=== PATIENT | female | born 1930 | race African-American/Black ===

== ENCOUNTER → 2016-11-22 | Outpatient (CLI) | payer MEDICARE, OTHER ==
[~2016-11-22] MED LIST: ACTONEL PO; ALDACTONE25 MG PO; ALENDRONATE SOD35 MG PO; AMLODIPINE BESY10 MG PO; AMLODIPINE BESYL5 MG PO; ASPIRIN EC81 M1 PO; ASPIRIN PO; ASPIRIN81 MG PO; B COMPLEX SUBLI59 ML SL; BENZONATATE PO; BETAPACE PO; BETAPACE160 MG PO; COUMADIN PO; COUMADIN2.5 MG PO; COUMADIN5 MG PO; COZAAR100 MG PO; CRESTOR PO; FEOSOL PO; FERROUS SULFATE PO; FOLIC ACID PO; FOLIC ACID800 MCG PO; FOSAMAX35 MG PO; HCTZ PO; HYDROCHLOROTH12.5 MG PO; HYZAAR 100-25 T1 TAB PO; IBUPROFEN200 M1 PO; IMDUR-ER30 M1 PO; ISOSORBIDE MONO10 MG PO; KCL PO; LEVOTHYROXINE25 MC1 PO; LEVOTHYROXINE25 MCG PO; LOMOTIL TABLET1 TAB; LOPRESSOR PO; MEGACE ORA40 MG/ML S PO; MEGACE ORA400 MG/10; MEGACE ORA400 MG/10 PO; MEGESTROL ACETA40 MG PO; MULTI VITAMIN1 EACH PO; MULTI-VITAMIN1 TAB PO; MULTIVITAMINS1 EAC3 PO; NITROFURANTOIN50 M1 PO; NITROGLYGERIN0.4 MG SL; OMEPRAZOLE40 M1 PO; OMEPRAZOLE40 MG; PANTOPRAZOLE SO40 MG PO; PROAIR HFA8.5 GM INH; PROTONIX PO; REFRESH CLASSI1 EACH OU; REFRESH EYE DRO50 E1 OU; SIMVASTATIN40 MG PO; SOTALOL160 MG PO; SPIRIVA18 MCG INH; SULAR PO; SYMBICORT INH; SYNTHROID PO; TRAMADOL HCL50 M1 PO; VITAMIN B-12250 MCG PO; WARFARIN SODIU2.5 MG PO; ZOCOR PO; ZYRTEC PO
[2016-11-22 13:00] LABS: URINE APPEARANCE CLEAR; URINE BILIRUBIN NEG (NEG); URINE BLOOD NEG (NEG); URINE COLOR YELLOW; URINE GLUCOSE NEG (NEG); URINE KETONE NEG (NEG); URINE LEUKOCYTE ESTERASE 1+ (NEG); URINE NITRATE NEG (NEG); URINE PH 5.5 (5-8); URINE PROTEIN NEG (NEG); URINE SPECIFIC GRAVITY 1.015 (1.003-1.035)
[2016-11-22 13:02] LABS: URBCS1 AUWI 0-2 /[HPF] (0-2); URINE BACTERIA AUWI NEG (NEGATIVE); URINE SQUAMOUS EPITHELIAL CELL NONE SEEN /[HPF]; UWBCS1 AUWI 0-2 (0-5)
[2016-11-22 13:14] LABS: CULTURE INDICATED? NO
[2016-11-22 13:15] LABS: URINE MUCUS PRESENT; URINE SOURCE CLEAN CATCH
[2016-11-22 13:20] LABS: URINE CRYSTALS CALCIUM OXALATE /[HPF]
== END | disposition home or self-care (01) ==
LOC: CLAB 12:08
PROVIDERS: Nurse Practitioner
DX: R10.2 Pelvic and perineal pain (principal)
CPT/HCPCS: 36415; 81003

== ENCOUNTER 2017-03-25 15:04 | Inpatient (IN) | payer MEDICARE, OTHER ==
[~2017-03-25] VITALS: Ht 162.6 cm; Wt 51.1 kg
--- NOTE | ~2017-03-25 | DS ---
Unit #: [id number] #: [id number] Patient: KATHLEEN BUCHANAN [id number] [address] [place], [place] [address] [id number] I MR#: [id number] NAME: KATHLEEN BUCHANAN ROOM: [facility] Age: 87 Sex: F Admission Date: 03/25/2017 : 1930 Discharge Date: 03/26/2017 Attending Physician: Haile Hughes M.D. DISCHARGE SUMMARY REVISED REPORT See Addendum ADMISSION DIAGNOSIS Atrial fibrillation. DISCHARGE DIAGNOSES 1. Atrial fibrillation, rapid ventricular response, spontaneous cardioversion, associated with shortness of breath and lightheadedness. 2. Sick sinus syndrome with permanent pacemaker placement. 3. Normal ejection fraction on echo with moderate aortic stenosis, peak gradient approximately 25 mmHg. 4. Severe orthopnea, sleeps sitting, likely obstructive sleep apnea. 5. Coronary artery disease, status post stenting to RCA in 2000. 6. Hypothyroidism. 7. Dyslipidemia. 8. History of syncope. HOSPITAL COURSE Patient was admitted and myocardial infarction was ruled out. Pacemaker was interrogated. This showed multiple instances of atrial events similar to yesterday, 11. These are being treated by Dr. Greenwood with Coumadin. Yesterday's was the longest for this patient. Most had been between one hour and two hours. Yesterday's was 10 hours in duration. Labs showed white blood count 7.5, hemoglobin 12.7, INR 2.3, TSH 3.09. Total cholesterol was 249, triglycerides 157, HDL 52. Hemoglobin A1c not performed. Creatinine was 0.8, fasting glucose 126, potassium 3.9. Hypokalemia was noted upon admission to 2.9, but this was replaced. The patient was started on Spironolactone. FOLLOWUP With Dr. Greenwood in four to six weeks. DISCHARGE MEDICATIONS 1. Albuterol. 2. Symbicort. 3. Spiriva. 4. Warfarin 2.5 mg daily. 5. Megestrol 400 mg b.i.d. 6. Amlodipine 10 mg daily (5 mg tablets). 7. Sotalol 160 mg b.i.d. Unit #: [id number] #: [id number] Patient: LEVERIDGE,KATHLEEN P 8. Eyedrops. 9. Multivitamins. 10. Aspirin 81 mg daily. 11. Spironolactone 12.5 mg daily, new medication. 12. Protonix 40 mg daily. 13. Levothyroxine 25 mcg daily. 14. Imdur 30 mg daily. Dictated by... Alexandra Randhawa/radha TD: 03/28/2017 17:09 JOB #: [id number] CC: Maxwell Greenwood M.D. ADDENDUM DISCHARGE DIAGNOSES (CONTINUED) 9. Probable obstructive sleep apnea. RECOMMENDATIONS Patient will be seen by Dr. Velasquez before discharge to set up for an outpatient sleep study at [facility]. DISCHARGE MEDICATIONS (CONTINUED) Spironolactone upon discharge was given at 25 mg daily. Dictated by... Alexandra Randhawa TD: 03/28/2017 17:33 JOB #: [id number] CC: Maxwell Greenwood M.D. Sovera/invision Please Delete DISCHARGE SUMMARY Page 1 of 1 X Haile Hughes MD X DISCHARGE SUMMARY
--- NOTE | ~2017-03-25 | DS ---
Unit #: [id number] #: [id number] Patient: KATHLEEN BUCHANAN [id number] [address] [address] [id number] I MR#: [id number] NAME: KATHLEEN BUCHANAN. ROOM: 560 Age: 87 Sex: F Admission Date: 03/25/2017 : 1930 Discharge Date: 03/26/2017 Attending Physician: Haile Hughes M.D. DISCHARGE SUMMARY ADMISSION DIAGNOSIS Atrial fibrillation. DISCHARGE DIAGNOSES 1. Atrial fibrillation, rapid ventricular response, spontaneous cardioversion, associated with shortness of breath and lightheadedness. 2. Sick sinus syndrome with permanent pacemaker placement. 3. Normal ejection fraction on echo with moderate aortic stenosis, peak gradient approximately 25 mmHg. 4. Severe orthopnea, sleeps sitting, likely obstructive sleep apnea. 5. Coronary artery disease, status post stenting to RCA in 2000. 6. Hypothyroidism. 7. Dyslipidemia. 8. History of syncope. HOSPITAL COURSE Patient was admitted and myocardial infarction was ruled out. Pacemaker was interrogated. This showed multiple instances of atrial events similar to yesterday, 11. These are being treated by Dr. Greenwood with Coumadin. Yesterday's was the longest for this patient. Most had been between one hour and two hours. Yesterday's was 10 hours in duration. Labs showed white blood count 7.5, hemoglobin 12.7, INR 2.3, TSH 3.09. Total cholesterol was 249, triglycerides 157, HDL 52. Hemoglobin A1c not performed. Creatinine was 0.8, fasting glucose 126, potassium 3.9. Hypokalemia was noted upon admission to 2.9, but this was replaced. The patient was started on Spironolactone. FOLLOWUP With Dr. Greenwood in four to six weeks. DISCHARGE MEDICATIONS 1. Albuterol. 2. Symbicort. 3. Spiriva. 4. Warfarin 2.5 mg daily. 5. Megestrol 400 mg b.i.d. 6. Amlodipine 10 mg daily (5 mg tablets). 7. Sotalol 160 mg b.i.d. 8. Eyedrops. 9. Multivitamins. 10. Aspirin 81 mg daily. Unit #: [id number] #: [id number] Patient: KATHLEEN BUCHANAN 11. Spironolactone 12.5 mg daily, new medication. 12. Protonix 40 mg daily. 13. Levothyroxine 25 mcg daily. 14. Imdur 30 mg daily. 1. Dictated by... Alexandra Randhawa/radha TD: 03/28/2017 17:09 JOB #: [id number] CC: Maxwell Greenwood M.D. DISCHARGE SUMMARY Page 1 of 1 X Haile Hughes MD X DISCHARGE SUMMARY
--- NOTE | ~2017-03-25 | EKG ---
PATIENT: KATHLEEN BUCHANAN UNIT #: [id number] Ventricular Rate: 137 BPM Atrial Rate: 136 BPM QRS Duration: 126 ms Q-T Interval: 364 ms QTC Calculation(Bezet): 549 ms Calculated R [place]: -72 degrees Calculated T [place]: 138 degrees Diagnosis Line: Atrial fibrillation with rapid ventricular Diagnosis Line: response Diagnosis Line: Left axis deviation Diagnosis Line: Non-specific intra-ventricular conduction block Diagnosis Line: Septal infarct , age undetermined Diagnosis Line: T wave abnormality, consider lateral ischemia Diagnosis Line: Abnormal ECG Diagnosis Line: When compared with ECG of 19-AUG-2015 08:15, Diagnosis Line: Atrial fibrillation has replaced Electronic Diagnosis Line: ventricular pacemaker Diagnosis Line: Vent. rate has increased BY 46 BPM Diagnosis Line: Confirmed by MARY LOU MENSAH MD ([id number]) on 03/27/2017 Diagnosis Line: 1:59:21 PM INTERPRETING MD: RODRICK HALEY
--- NOTE | ~2017-03-25 | EKG ---
PATIENT: KATHLEEN BUCHANAN UNIT #: [id number] Ventricular Rate: 61 BPM Atrial Rate: 61 BPM P-R Interval: 156 ms QRS Duration: 128 ms Q-T Interval: 480 ms QTC Calculation(Bezet): 483 ms P [place]: 90 degrees Calculated R [place]: -58 degrees Calculated T [place]: 123 degrees Diagnosis Line: Electronic atrial pacemaker Diagnosis Line: Left axis deviation Diagnosis Line: Left bundle branch block with repolarization Diagnosis Line: abnormality Diagnosis Line: Abnormal ECG Diagnosis Line: When compared with ECG of 25-MAR-2017 15:21, Diagnosis Line: (unconfirmed) Diagnosis Line: Electronic atrial pacemaker has replaced Atrial Diagnosis Line: fibrillation Diagnosis Line: Vent. rate has decreased BY 76 BPM Diagnosis Line: T wave amplitude has decreased in Inferior leads Diagnosis Line: T wave amplitude has decreased in Anterior leads Diagnosis Line: Confirmed by MARY LOU MENSAH MD ([id number]) on 03/27/2017 Diagnosis Line: 2:01:55 PM INTERPRETING MD: RODRICK HALEY
--- NOTE | ~2017-03-25 | CR72 ---
[facility] A Service of [facility] & [facility] RADIOLOGY TEXT RESULTS PATIENT: KATHLEEN BUCHANAN LOCATION: C5B 560-01 : [birth year] UNIT #: [id number] AGE: [address]: Haile Hughes MD SEX: F ORDER DR: [id number] [facility] [address] [facility]. [place], [place] [address] [id number] I MR#: [id number] Acc #: [id number] NAME: KATHLEEN BUCHANAN. : 1930 SEX: F STUDY DATE/TIME: 03/25/2017 15:49 UNIT: [facility] ROOM: [facility] STUDY DESCRIPTION: CR Chest Single View Portable Attending Physician: Haile Hughes M.D. Ordering Physician: Adams Rodriguez M.D. Primary Care Physician: Primary Care Physician No MEDICAL IMAGING REPORT This report is preliminary unless electronic signature is present EXAM AP view of the chest COMPARISON August 19, 2015 June 10, 2014 and June 01, 2014. INDICATION 87-year-old female with dyspnea, tachycardia and diaphoresis for 3 hours today. FINDINGS Dual lead left chest pacemaker device appears stable. There is stable calcification of the aortic arch. Cardiomediastinal silhouette is within normal limits. There is no evidence of pleural effusion or acute airspace disease. There is lung hyperexpansion suggesting emphysema. Nipple shadow is seen over the right lung base. Multiple skin fold artifacts are seen over the right chest. No convincing evidence of pneumothorax. Lung hyperexpansion suggestive of COPD. There is minimal calcification near the insertion of the rotator cuff on the left humeral head as well as the right humeral head in the same location likely representing calcific tendinopathy. IMPRESSION Favored represent skin fold artifact over the right chest there are multiple lines which appear to parallel the chest wall. It appears that there are pulmonary markings peripheral to these lines favoring skin fold artifacts. Given the patient's acute onset of tachycardia and dyspnea however, further evaluation with left lateral decubitus view is recommended to exclude the possibility pneumothorax which is thought much less likely. Lungs are otherwise clear. There is no evidence of pneumonia. Findings are suggestive of COPD. Dictated by... [facility] A Service of [facility] & [facility] RADIOLOGY TEXT RESULTS PATIENT: KATHLEEN BUCHANAN LOCATION: [facility] 560-01 : [birth year] UNIT #: [id number] AGE: [address]: Haile Hughes MD SEX: F ORDER DR: Maxwell Wilkins M.D. THIS IS AN ELECTRONICALLY VERIFIED REPORT Maxwell Wilkins M.D. at 04/02/2017 10:37 AM BRIANA/kobe TD: 03/26/2017 05:26 JOB #: [id number] MEDICAL IMAGING REPORT Page 1 of 1 COPY
--- NOTE | ~2017-03-25 | CO ---
Unit #: [id number] #: [id number] Patient: KATHLEEN BUCHANAN [id number] [facility] [address]. [place], [place] [address] [id number] I MR#: [id number] NAME: KATHLEEN BUCHANAN ROOM: 560 Age: 87 Sex: F Admission Date: 03/25/2017 : 1930 Attending Physician: Haile Hughes M.D. Primary Care Physician: Primary Care Physician No CONSULTATION REPORT CONSULTATION REQUESTING PHYSICIAN Dr. Mccann. REASON FOR CONSULTATION REQUEST Atrial fibrillation. HISTORY OF PRESENT ILLNESS Ms. Levine is a pleasant 87-year-old female, seen in room T5 at [facility] Emergency Room. She is a patient of my colleague, Dr. Greenwood, and follows with him because of coronary artery disease and a history of atrial fibrillation. She has known paroxysmal atrial fibrillation, has been seen here at [facility] several times in the past, and has undergone stenting of the RCA in 2000, with open arteries in 2001 on cardiac catheterization. Recently she noticed tachycardia, shortness of breath, and lightheadedness. She feels the tachycardias and palpitations. She has had orthopnea, which has been severe, at least since the end of the year. She states that she absolutely must sleep sitting up. She has not had any syncope recently, but has been worked up for syncope in the past. She has not had any edema recently, or chest pain with exertion. Upon presentation to [facility] Emergency Room, her ECG showed left axis deviation, intraventricular conduction delay, atrial fibrillation with rates 137. She was started on diltiazem bolus and drip, and we are going to add digoxin. With diltiazem, heart rate was brought down to approximately 120. Fasting glucose today was 110, creatinine 1.0, potassium 2.9, magnesium 2.1. Troponin still to be measured. TSH previously was 2.2. Point of care troponin was normal. White blood count 7.5, hemoglobin 12.7, platelet count 147,000. PAST MEDICAL HISTORY 1. Atrial fibrillation paroxysmal, on anticoagulation. INR was normal. 2. Severe orthopnea at least since the beginning of the year. 3. Ejection fraction 55% in 2008. 4. Coronary artery disease, stenting of RCA in 2000. 5. Hypothyroidism. 6. Sick sinus syndrome, permanent pacemaker placement with generator change in 10/2016, recheck 01/2017. 7. Dyslipidemia. 8. History of syncope. Unit #: [id number] #: [id number] Patient: KATHLEEN BUCHANAN FAMILY HISTORY Not pertinent. SOCIAL HISTORY Daughters are here with her. Denies alcohol or tobacco use. MEDICATIONS Vitamin B12, megestrol, B complex, Spiriva, Refresh eye drops, ProAir, isosorbide, pantoprazole, tramadol, nitrofurantoin, amlodipine, folic acid, sotalol, Coumadin, aspirin, levothyroxine, Symbicort, Megace. ALLERGIES Penicillin, IV dye, acetaminophen. IV dye causes severe hives. Sulfa causes upset stomach. REVIEW OF SYSTEMS As per history of present illness. Otherwise, as stated below. GENERAL: No recent fever or chills. No recent weight change. ENDOCRINE: Negative for thyroid disease. HEENT: No auditory or visual disturbances. GASTROINTESTINAL: No melena, no hematochezia. RESPIRATORY: No wheezing or significant dyspnea. CARDIOVASCULAR: Vide supra. GENITOURINARY: No dysuria. No back pain suggestive of nephrolithiasis. NEUROLOGIC: No seizure disorder, recent CVA, or TIA. PSYCHOLOGICAL: No depression. PHYSICAL EXAMINATION GENERAL: Pleasant, alert, in no acute distress. VITAL SIGNS: Blood pressure 148/83, heart rate is 129 to 151, irregularly irregular, respiratory rate is 18. SKIN: Warm and dry. No xanthelasma. MUSCULOSKELETAL: No missing digits. Moves easily for evaluation. NEUROLOGICAL: Appropriate mood and affect. Alert and oriented x3. HEENT: Pupils equal, round and reactive. No oral cyanosis. No icterus. NECK: Carotids clear to auscultation with no carotid bruits. Normal carotid upstroke bilaterally. Thyroid is normal in size and texture without masses or tenderness. CHEST: Clear to auscultation with no rales or wheezes. Good effort. CARDIAC: Normal point of maximum impulse. Normal S1 and S2. No S3 or rub. Irregularly irregular rhythm. ABDOMEN: No hepatosplenomegaly, masses or tenderness. Normal bowel sounds. No abdominal bruits heard. EXTREMITIES: No clubbing, cyanosis or edema. Excellent posterior tibial and dorsalis pedis pulses. DIAGNOSTIC STUDIES LABORATORY RESULTS: As above regarding ECG, and labs. IMPRESSION 1. Paroxysmal atrial fibrillation, on anticoagulation. 2. Severe orthopnea. 3. Ejection fraction of 55% in 2008. 4. Coronary artery disease, status post stenting of RCA in 2000. 5. Hypothyroidism, treated. 6. Sick sinus syndrome with permanent pacemaker and recent generator placement. Unit #: [id number] #: [id number] Patient: KATHLEEN BUCHANAN 7. Dyslipidemia. 8. History of syncope. 9. Hypokalemia, significant. 10. Hypertension, mild. RECOMMENDATIONS 1. Add digoxin to the Cardizem to slow the rate. 2. Check an echo. 3. Check a permanent pacemaker. The patient states she is never in this rhythm. We need to find out from her pacemaker what rhythm she has been sustaining. 4. We will check TSH, add the digoxin, replace her potassium. 5. We will start spironolactone 12.5 mg. I suspect that the combination of the hypertension with hypokalemia may be related to some hyperaldosteronism. 6. We would check troponins tonight and in the morning. 7. We will check urinalysis to make sure this has not aggravated things. 8. We will check overnight oximetry. I have seen this type of situation with history of syncope, paroxysmal atrial fibrillation, and sick sinus syndrome in the presence of sleep apnea. Thank you very much for this consultation. We will follow with you. Dictated by... Haile Hughes M.D. JONATAN/hao TD: 03/26/2017 14:01 JOB #: [id number] CONSULTATION REPORT Page 1 of 1 X Haile Hughes MD X CONSULTATION REPORT
[~2017-03-25 15:04] MED LIST changes: -ALDACTONE25 MG PO; -AMLODIPINE BESY10 MG PO; -ASPIRIN81 MG PO; -COUMADIN5 MG PO; -IMDUR-ER30 M1 PO; -MEGACE ORA40 MG/ML S PO; -MULTIVITAMINS1 EAC3 PO; -REFRESH CLASSI1 EACH OU
[2017-03-25 15:42] LABS: BASOPHIL# 0.1 X10e3 (0-0.3); BASOPHIL% 0.9 % (0-2.5); EOSINOPHIL# 0.1 X10e3 (0-0.7); EOSINOPHIL% 1.4 % (0.0-7.0); HEMATOCRIT 38.6 % (35.0-45.0); HEMOGLOBIN 12.7 gm/dL (12.0-16.0); LYMPHOCYTE# 1.3 X10e3 (1.0-3.5); MEAN CELL VOLUME 80.1 FL (83-96); MEAN CORPUSCULAR HEMOGLOBIN 26.3 PG (28-34); MEAN CORPUSCULAR HGB CONC 32.8 g/dL (30-36); MEAN PLATELET VOLUME 8.3 FL (6.5-11.5); MONOCYTE# 0.6 X10e3 (0-1.0); MONOCYTE% 8.1 % (3.0-12.0); NEUTROPHIL# 5.4 X10e3 (1.5-7.1); NEUTROPHIL% 72.6 % (40-75); PLATELET COUNT 147 X10e3 (140-420); RED BLOOD COUNT 4.82 X10e (3.90-5.30); RED CELL DISTRIBUTION WIDTH 15.8 % (11.0-15.5); WHITE BLOOD COUNT 7.5 X10e3 (4.0-10.5)
[2017-03-25 15:44] LABS: DIFF IND NO
[2017-03-25 15:49] LABS: POC - TROPONIN <0.05 ng/mL (<=0.05)
[2017-03-25 15:54] LABS: INR 2.3; PARTIAL THROMBOPLASTIN TIME 33.1 SECONDS (23.5-31.3); PROTHROMBIN TIME (PATIENT) 24.7 SECONDS (10.0-11.7)
[2017-03-25 16:05] LABS: ALBUMIN SERUM 4.3 g/dL (3.5-5.0); BILIRUBIN, DIRECT 0.1 mg/dL (0.0-0.2); BILIRUBIN,INDIRECT 0.7 mg/dL (0.0-0.9); BILIRUBIN,TOTAL 0.8 mg/dL (0.2-2.0); CALCIUM SERUM 9.3 mg/dL (8.4-10.2); GLOM FILT RATE Estimated 57.9 mL/min (>60); MAGNESIUM 2.1 mg/dL (1.6-3.0)
[2017-03-25 16:06] LABS: POTASSIUM 2.9 mmol/L (3.5-5.1)
[2017-03-25 17:23] LABS: POC - TROPONIN <0.05 ng/mL (<=0.05)
[2017-03-25 17:39] LABS: CHOLESTEROL 249 mg/dL (0-200); HDL CHOLESTEROL 52 mg/dL (35-95); LDL/HDL RATIO 3 RATIO (0-4); TRIGLYCERIDES 157 mg/dL (10-160)
[2017-03-25 17:40] LABS: LDL CHOLESTEROL 166 mg/dL ([, -130])
[2017-03-25] MEDS ORDERED: MEGACE ORA40 MG/ML S PO (18:26)
[2017-03-25] MEDS ORDERED: SPIRIVA18 MCG INH (18:27)
[2017-03-25] MEDS ORDERED: REFRESH CLASSI1 EACH OU (18:30)
[2017-03-25] MEDS ORDERED: PROAIR HFA8.5 GM INH (18:31)
[2017-03-25] MEDS ORDERED: IMDUR-ER30 M1 PO (18:32)
[2017-03-25] MEDS ORDERED: PROTONIX PO (18:33)
[2017-03-25] MEDS ORDERED: AMLODIPINE BESY10 MG PO (18:34)
[2017-03-25] MEDS ORDERED: SOTALOL160 MG PO (18:35)
[2017-03-25] MEDS ORDERED: LEVOTHYROXINE25 MC1 PO (18:36)
[2017-03-25] MEDS ORDERED: ASPIRIN81 MG PO (18:36)
[2017-03-25] MEDS ORDERED: COUMADIN5 MG PO (18:36)
[2017-03-25] MEDS ORDERED: MULTIVITAMINS1 EAC3 PO (18:36)
[2017-03-25] MEDS ORDERED: SYMBICORT INH (18:37)
[2017-03-26 06:29] LABS: BUN/CREATININE RATIO 18.75; CALCIUM SERUM 8.8 mg/dL (8.4-10.2); CREATININE SERUM 0.8 mg/dL (0.6-1.4); GLOM FILT RATE Estimated 75.8 mL/min (>60); MAGNESIUM 1.9 mg/dL (1.6-3.0); POTASSIUM 3.9 mmol/L (3.5-5.1)
[2017-03-26 06:30] LABS: CK TOTAL 50 IU/L (26-140)
[2017-03-26] MEDS ORDERED: ALDACTONE25 MG PO (14:03)
== END 2017-03-26 18:10 | disposition home or self-care (01) | DRG 310 ==
LOC: CED 15:04 → CEDOF 16:31 → CED 17:51 → CEDOF 17:51 → C5B 21:21 → CEDOF 21:21 → C5B 03-26 18:10
PROVIDERS: Emergency Medicine
PROC: 4A02XFZ Measurement of Cardiac Rhythm, External Approach (ICD-10-PCS; principal; 2017-03-25)
PROC: B246YZZ Ultrasonography of Right and Left Heart using Other Contrast (ICD-10-PCS; 2017-03-26)
DX: I48.91 Unspecified atrial fibrillation (principal); I08.3 Combined rheumatic disorders of mitral, aortic and tricuspid valves; I10 Essential (primary) hypertension; E03.9 Hypothyroidism, unspecified; Z95.0 Presence of cardiac pacemaker; I25.10 Atherosclerotic heart disease of native coronary artery without angina pectoris; Z95.5 Presence of coronary angioplasty implant and graft; E78.5 Hyperlipidemia, unspecified; Z79.01 Long term (current) use of anticoagulants; Z79.82 Long term (current) use of aspirin; Z88.0 Allergy status to penicillin; Z88.2 Allergy status to sulfonamides; Z91.041 Radiographic dye allergy status; E87.6 Hypokalemia
CPT/HCPCS: 36415; 71010; 80048; 80061; 80076; 82550; 82553; 83735; 84132; 84443; 84484; 85025; 85610; 85730; 93005; 93306; 94762; 96374; 99285; J1160; J3475